=== PATIENT | male | born 1950 | race Caucasian/White ===

== ENCOUNTER → 2017-02-15 | Outpatient (CLI) | payer OTHER | END | disposition home or self-care (01) | LOC: GMAL 10:49 | PROVIDERS: ATTEND Family Medicine | DX: D51.3 Other dietary vitamin B12 deficiency anemia (principal); E55.9 Vitamin D deficiency, unspecified ==

== ENCOUNTER 2017-05-24 05:48 | Day surgery (SDC) | payer OTHER ==
[2017-05-24] MEDS ORDERED: LACTATED RINGERS 1,000 ML ONE (07:01)
[2017-05-24] MEDS ORDERED: MIDAZOLAM INJ 2 MG/2 ML VIAL ONE (07:53)
[2017-05-24] MEDS ORDERED: fentaNYL CITRATE INJ 50 MCG/ML AMP ONE (07:53)
--- NOTE | 2017-05-24 08:52 | OP ---
DATE OF PROCEDURE: 05/24/17 PREPROCEDURE DIAGNOSIS: 1. History of colonic polyps, polyp surveillance, last colonoscopy 5 years ago. POSTPROCEDURE DIAGNOSIS: 1. Rectal polyp. 2. Diverticulosis. 3. Internal hemorrhoids. 4. Angiectasias in the cecum. PROCEDURE: 1. Colonoscopy with polypectomy. SURGEON: Tyree Leary MD. SEDATION: Monitored anesthesia care. ESTIMATED BLOOD LOSS: Less than 5 mL. PROCEDURE: Informed consent was obtained prior to sedation. The preprocedure cardiopulmonary assessment was satisfactory. The patient was brought to the Endoscopy Suite and placed in the left lateral decubitus position. The patient was then sedated by the anesthesia team. Digital rectal and perianal exams were normal. The tip of the Olympus colonoscope was inserted into the rectum and advanced under direct visualization to the terminal ileum. The cecum was identified by the presence of the appendiceal orifice and ileocecal valve. Preparation of the colon was good. Upon reaching the terminal ileum, the endoscope was slowly withdrawn from the patient with careful attention paid to the entire colonic mucosa for the identification of any flat polyps or small vascular lesions. The terminal ileum appeared normal. In the cecum, there were two angiectasias which were non-bleeding and small in size. In the sigmoid colon, there was diverticulosis and in the sigmoid colon there was also a scar from a prior end-to-end colocolonic anastomosis. Retroflexed view of the anal verge showed medium sized, non-bleeding internal hemorrhoids. An 8 mm sessile polyp was found in the rectum. This was resected and retrieved with a cold snare polypectomy and sent for pathology. The endoscope was then withdrawn from the patient and the procedure terminated. RECOMMENDATION: 1. Discharge the patient home with escort. 2. Continue present medications. 3. Resume regular diet. 4. Followup pathology and perform surveillance colonoscopy in 5 years' time. 5. Followup with primary care provider. #[id number] [facility]
[2017-05-24] MEDS ORDERED: LIDOCAINE 1% 10 ML VIAL INJ ONE (10:00)
[2017-05-24] MEDS ORDERED: PROPOFOL 200 MG/20 ML VIAL IV ONE (10:00)
[2017-05-24 10:30] VITALS: BP 161/101; TEMP 97.6; O2SAT 97
== END 2017-05-24 09:15 | disposition home or self-care (01) ==
LOC: AMB 05:48
PROVIDERS: ATTEND Internal Medicine Gastroenterology
DX: Z12.11 Encounter for screening for malignant neoplasm of colon (principal); K62.1 Rectal polyp; K57.30 Diverticulosis of large intestine without perforation or abscess without bleeding; K64.8 Other hemorrhoids; K55.20 Angiodysplasia of colon without hemorrhage; K21.9 Gastro-esophageal reflux disease without esophagitis; E66.9 Obesity, unspecified; Z86.010 Personal history of colon polyps; Z87.891 Personal history of nicotine dependence; Z68.32 Body mass index [BMI] 32.0-32.9, adult; Z80.0 Family history of malignant neoplasm of digestive organs; Z79.899 Other long term (current) drug therapy

== ENCOUNTER → 2018-01-23 | Outpatient (CLI) | payer OTHER | LOC: GMAL 15:20 | PROVIDERS: ATTEND Family Medicine | DX: E83.42 Hypomagnesemia (principal) ==

== ENCOUNTER → 2019-11-04 | Outpatient (CLI) | payer OTHER | LOC: GMAL 10:36 | PROVIDERS: ATTEND Family Medicine | DX: D51.3 Other dietary vitamin B12 deficiency anemia (principal); E55.9 Vitamin D deficiency, unspecified; I10 Essential (primary) hypertension; E11.9 Type 2 diabetes mellitus without complications; E78.49 Other hyperlipidemia ==

== ENCOUNTER 2020-01-27 05:38 | Day surgery (SDC) | payer OTHER ==
[2020-01-27] MEDS ORDERED: TROP1%/CYCLOPEN 1%/PHENYL 2.5% DROPS OPHTH ONE (05:39)
[2020-01-27] MEDS ORDERED: hydrALAZINE HCl 20 MG/ML VIAL ONE ×2 (08:47→09:05)
[2020-01-27] MEDS ORDERED: MIDAZOLAM INJ 2 MG/2 ML VIAL ONE (09:05)
[2020-01-27] MEDS ORDERED: BRIMONIDINE 0.2% OPHTH DROPS RIGHT_EYE ONE (09:12)
[2020-01-27] MEDS ORDERED: TOBRAMYCIN SULF 0.3 % OPHT SOL 1 DROP RIGHT_EYE ONE (09:12)
[2020-01-27] MEDS ORDERED: DEXAMETHASONE 0.1% OPHTH SOL 1 DROP RIGHT_EYE ONE (09:12)
[2020-01-27] MEDS ORDERED: MOXIFLOXACIN HCL (OPHTH) 1 DROP DROPS RIGHT_EYE ONE (09:12)
[2020-01-27] MEDS ORDERED: PROPARACAINE 0.5% OPHTH SOL 15 ML BTTL RIGHT_EYE ONE (09:12)
[2020-01-27] MEDS ORDERED: LIDOCAINE 1% 2 ML VIAL INJ ONE (09:12)
== END 2020-01-27 10:10 | disposition home or self-care (01) ==
LOC: AMB 05:38
PROVIDERS: ATTEND Ophthalmology
DX: E11.36 Type 2 diabetes mellitus with diabetic cataract (principal); H25.13 Age-related nuclear cataract, bilateral; I10 Essential (primary) hypertension; Z79.84 Long term (current) use of oral hypoglycemic drugs; Z79.899 Other long term (current) drug therapy
CPT/HCPCS: 00142; 36415; 36416; 66984; 82948; J0360; J2250

== ENCOUNTER → 2020-02-17 | Outpatient (CLI) | payer OTHER | LOC: GMAL 14:20 | PROVIDERS: ATTEND Family Medicine | DX: D51.3 Other dietary vitamin B12 deficiency anemia (principal); E55.9 Vitamin D deficiency, unspecified; Z79.899 Other long term (current) drug therapy; E78.49 Other hyperlipidemia; E11.9 Type 2 diabetes mellitus without complications ==